=== PATIENT | female | born 1980 | race American Indian/Alaskan Native ===

== ENCOUNTER 2016-09-13 16:28 | Emergency (ER) | payer SELFPAY ==
--- NOTE | 2016-09-13 20:26 | Emergency Department Report ---
HPI - General Chief Complaint: Medical Clearance Time Seen by Provider: 09/13/16 20:02 - HPI HPI: Patient here states that she's not feeling right since started on medication given to her by dentist a few days ago. This medication is Medrol Dosepak. She says she took medication and she is not eating due to jaw pain. Said she also went to the dentist for a tooth infection knee put her on ibuprofen and amoxicillin which she complete but her tooth is still swollen. He reports the pain to her jaw 6 out of 10 without any injury Denies any nausea vomiting. Denies any fever or chills. Denies any shortness of breath, difficulty swallowing, cough or wheezing. Denies any chest pain. ED Past Medical Hx - Past Medical History Previous Medical History?: No - Surgical History Past Surgical History?: No - Family History Family history: no significant - Social History Smoking Status: Never Smoker Substance Use Type: None - Medications Home Medications: Home Medications Medication Instructions Recorded Confirmed Last Taken Type Acetaminophen/Codeine [Tylenol #3] 1 tab PO Q6H PRN #15 tab 09/13/16 Unknown Rx Clindamycin [Clindamycin CAP] 300 mg PO Q12H #20 capsule 09/13/16 Unknown Rx ED Review of Systems ROS: Stated complaint: HEAD INJURY Other details as noted in HPI Comment: All other systems reviewed and negative Constitutional: denies: chills, fever, weakness ENT: other (left facial pain). denies: ear pain, throat pain, hearing loss, epistaxis, congestion Respiratory: no symptoms reported Cardiovascular: denies: chest pain, palpitations, edema, syncope Gastrointestinal: denies: abdominal pain, nausea, vomiting, diarrhea, constipation, hematemesis, melena, hematochezia Genitourinary: denies: urgency, dysuria, frequency, hematuria, discharge, abnormal menses, dyspareunia Skin: denies: as per HPI, rash, lesions, change in color, change in hair/nails, pruritus, other Neurological: other (dizziness). denies: headache, weakness, numbness, paresthesias, confusion, abnormal gait, vertigo Psychiatric: anxiety Physical Exam - Physical Exam Vital Signs: Vital Signs 09/13/16 17:00 Temperature 97.1 F L Pulse Rate 80 Respiratory 19 Rate Blood Pressure 110/68 O2 Sat by Pulse 100 Oximetry General: This Is a 36-year-old female well-nourished well-developed in no acute distress. Physical Exam: Head: Normocephalic atraumatic Mouth: Moist, no pharyngeal exudate or erythema. Uvula is midline and oral airway is patent. No gingival enlargement or dental tenderness. No facial swelling. No peritonsillar abscesses. Swelling noted to left upper back tooth with mild erythema and no induration. Neck: Supple, no C-spine tenderness, no tracheal deviation. Nontender to palpate. no adenopathy Ears: Bilateral TMs pearly oneill.bilateral EAC without any redness swelling or drainage Eyes: Bilateral pupils equal and reactive to light, bilateral EOM intact. Bilateral sclera and conjunctiva without injection. Normal accommodation EARS: maxillary and frontal sinus non-tender to palpate. Nasal mucosa normal Lungs: Clear to auscultate bilaterally no rhonchi wheezes or rales. Normal work of breathing extremity; No CCE. +2 pulses. No neurovascular compromise Cardiovascular: S1-S2, regular rate rhythm. No murmurs. Abdomen:, Nontender to palpate in all quadrants. No guarding or rebound tenderness. Neurological: GCS 15, speech is clear and fluid. Negative pronator drift. Negative Romberg. He is alert and oriented 3. Normal gait . no motor or sensory deficit. Skin: clean Dry and intact no rash no lesions Psych:anxiety ,mild MSK: Range of motion to all extremities, +5/5 movement to all extremities. ED Course Vital Signs 09/13/16 17:00 Temperature 97.1 F L Pulse Rate 80 Respiratory 19 Rate Blood Pressure 110/68 O2 Sat by Pulse 100 Oximetry - Reevaluation(s) Reevaluation #1: 09/13/16 21:00 Stable throughout ED course ED Medical Decision Making - Medical Decision Making Course: I discussed patient that she has some cellulitis in her upper back tooth and I'll place her on antibiotic and some pain medication. Discussed with her that she needs to stop taking and Medrol Dosepak. I discussed with her that she will need to follow up Dentist for evaluation and treatment. PT voiced understanding of discharge instructions and discharged home with prescription for clindamycin and Tylenol 3. Critical care attestation.: If time is entered above; I have spent that time in minutes in the direct care of this critically ill patient, excluding procedure time. ED Disposition Clinical Impression: Oral cellulitis, Drug side effects Disposition: DISCHARGED TO HOME OR SELFCARE Is pt being admited?: No Does the pt Need Aspirin: No Condition: Stable Instructions: Cellulitis (ED) Additional Instructions: Stop Taking Medrol Dosepak Take Medication as prescribed Follow-up with your dentist on Wednesday Prescriptions: Acetaminophen/Codeine [Tylenol #3] 1 tab PO Q6H PRN #15 tab PRN Reason: Toothache Clindamycin [Clindamycin CAP] 300 mg PO Q12H #20 capsule Referrals: Your, Dentist [Other] - 3-5 Days PRIMARY CARE,MD [Primary Care Provider] - 2-3 Days Forms: Accompanied Note, Work/School Release Form(ED)
[2016-09-14 07:21] VITALS: BP 129/74
== END 2016-09-13 21:20 | disposition home or self-care (01) ==
LOC: ED 16:28
DX: K12.2 Cellulitis and abscess of mouth (principal); T88.7XXA Unspecified adverse effect of drug or medicament, initial encounter
CPT/HCPCS: 99282